=== PATIENT | male | born 1950 | race Caucasian/White ===

== ENCOUNTER 2017-05-18 11:25 | Emergency (ER) | payer MEDICARE ==
[~2017-05-18] VITALS: Ht 177.8 cm; Wt 86.0 kg
[2017-05-18 11:59] VITALS: BP 169/80
== END 2017-05-18 14:03 | disposition home or self-care (01) ==
LOC: ED 13:57
DX: H10.32 Unspecified acute conjunctivitis, left eye (principal); I10 Essential (primary) hypertension
CPT/HCPCS: 99283; 99285